=== PATIENT | female | born 1965 | race Hispanic/Latino ===

== ENCOUNTER 2018-02-28 15:15 | Inpatient (IN) | payer OTHER ==
[2018-02-28 16:10] LABS: Basophils % (Auto) 0.4 % (0.0-1.8); Eosinophils % (Auto) 0.6 % (0.0-4.3); Hematocrit 48.4 % (30.3-42.9); Hemoglobin 16.7 gm/dl (10.1-14.3); Lymphocytes # (Auto) 2.5 K/mm3 (1.2-5.4); Mean Corpuscular HGB Conc 35 % (30-34); Mean Corpuscular Hemoglobin 31 pg (28-32); Mean Corpuscular Volume 90 fl (79-97); Monocytes # (Auto) 0.5 K/mm3 (0.0-0.8); Monocytes % (Auto) 7.4 % (0.0-7.3); Platelet Count 286 K/mm3 (140-440); Red Blood Count 5.36 M/mm3 (3.65-5.03); Red Cell Distribution Width 12.4 % (13.2-15.2)
[2018-02-28 16:26] LABS: BUN/Creatinine Ratio 15; Blood Urea Nitrogen 9 mg/dL (7-17); Calcium 9.4 mg/dL (8.4-10.2); Hemolysis Index 5
--- NOTE | 2018-02-28 21:41 | XRay Report ---
FINAL REPORT PROCEDURE: XR CHEST ROUTINE 2V TECHNIQUE: PA and lateral chest radiographs were obtained. CPT 66671 HISTORY: chest pain and tightness COMPARISON: No prior studies are available for comparison. FINDINGS: Heart: Normal. Mediastinum/Vessels: Normal. Lungs/Pleural space: Normal. Bony thorax: No acute osseous abnormality. Other: IMPRESSION: Normal examination.
[2018-02-28 23:10] LABS: Bilirubin,Urine NEG (Negative); Blood,Urine SM (Negative); Color,Urine Yellow (Yellow); Mucus,Urine FEW /HPF; Urobilinogen,Urine < 2.0 mg/dL (<2.0)
[2018-02-28] MEDS ORDERED: TYLENOL PO ONE (23:11)
[2018-02-28] MEDS ORDERED: TYLENOL ONE (23:12)
[2018-03-01] MEDS ORDERED: NITRO-BID 2% TP ONE (03:02)
[2018-03-01] MEDS ORDERED: TORADOL IV ONE (03:02)
--- NOTE | 2018-03-01 03:09 | Emergency Department Report ---
HPI - General Chief Complaint: Chest Pain Time Seen by Provider: 03/01/18 02:51 - HPI HPI: Calin Dominguez The patient is a 52-year-old female presenting with a chief complaint of chest pain and dizziness. The patient states today at approximately noon she developed intermittent substernal chest tightness associated with shortness of breath, nausea and diaphoresis. Patient denies vomiting. Patient states she felt dizzy, had blurred vision, headache and experienced palpitations. Patient states she felt as though she was going to pass out prompting her to come to the emergency department. The patient states with her chest tightness she has had left upper extremity paresthesia . Patient states she's never had a cardiac catheterization Location: [See above] Duration: [See above] Quality: Tightness Severity: 12/14 Modifying factors: [see above] Context: [see above] Mode of transportation: [not driving] ED Past Medical Hx - Past Medical History Previous Medical History?: Yes Hx Hypertension: Yes - Surgical History Past Surgical History?: Yes Hx Cholecystectomy: Yes (2009) Additional Surgical History: mikayla aponte 2004 - Family History Family history: no significant - Social History Smoking Status: Former Smoker (none since 2002) Substance Use Type: None (denies illicit drug use), Alcohol (occasional) - Medications Home Medications: Home Medications Medication Instructions Recorded Confirmed Last Taken Type Eszopiclone [Lunesta] 3 mg PO QHS 02/28/18 02/28/18 Unknown History Norvasc 5 mg PO DAILY 02/28/18 02/28/18 Unknown History Tizanidine HCl [Zanaflex] 4 mg PO QHS 02/28/18 02/28/18 Unknown History cloNIDine [Catapres] 0.1 mg PO Q8HR PRN 02/28/18 02/28/18 Unknown History hydrALAZINE [Apresoline TAB] 100 mg PO TID 02/28/18 02/28/18 Unknown History ED Review of Systems ROS: Stated complaint: CHEST PAIN Other details as noted in HPI Constitutional: diaphoresis Eyes: denies: eye pain ENT: denies: throat pain Respiratory: shortness of breath Cardiovascular: chest pain, palpitations Endocrine: no symptoms reported Gastrointestinal: nausea. denies: vomiting Musculoskeletal: denies: back pain Neurological: headache, paresthesias Physical Exam - Physical Exam Vital Signs: Vital Signs 02/28/18 02/28/18 02/28/18 15:25 21:11 22:56 Temperature 98.5 F 98.8 F Pulse Rate 114 H 108 H 116 H Respiratory 16 18 18 Rate Blood Pressure 153/85 164/96 Blood Pressure 183/93 [Right] O2 Sat by Pulse 99 98 Oximetry 02/28/18 02/28/18 03/01/18 22:58 23:12 00:19 Temperature Pulse Rate 95 H Respiratory 18 14 Rate Blood Pressure Blood Pressure 181/91 157/89 [Right] O2 Sat by Pulse 98 Oximetry Physical Exam: GENERAL: The patient is well-developed well-nourished female lying on stretcher not appearing to be in acute distress. [] HEENT: Normocephalic. Atraumatic. Extraocular motions are intact. Patient has moist mucous membranes. NECK: Supple. Trachea midline CHEST/LUNGS: Clear to auscultation. There is no respiratory distress noted. HEART/CARDIOVASCULAR: Regular. There is no tachycardia. There is no gallop rub or murmur. ABDOMEN: Abdomen is soft, nontender. Patient has normal bowel sounds. There is no abdominal distention. SKIN: There is no rash. There is no edema. There is no diaphoresis. NEURO: The patient is awake, alert, and oriented. The patient is cooperative. The patient has no focal neurologic deficits. The patient has normal speech. Cranial nerves II through XII grossly intact, no drift MUSCULOSKELETAL: There is no evidence of acute injury. ED Course Vital Signs 02/28/18 02/28/18 02/28/18 15:25 21:11 22:56 Temperature 98.5 F 98.8 F Pulse Rate 114 H 108 H 116 H Respiratory 16 18 18 Rate Blood Pressure 153/85 164/96 Blood Pressure 183/93 [Right] O2 Sat by Pulse 99 98 Oximetry 02/28/18 02/28/18 03/01/18 22:58 23:12 00:19 Temperature Pulse Rate 95 H Respiratory 18 14 Rate Blood Pressure Blood Pressure 181/91 157/89 [Right] O2 Sat by Pulse 98 Oximetry ED Medical Decision Making - Lab Data Result diagrams: 02/28/18 15:36 02/28/18 15:36 Laboratory Tests 02/28/18 02/28/18 02/28/18 15:36 15:36 18:42 WBC 7.1 RBC 5.36 H Hgb 16.7 H Hct 48.4 H MCV 90 MCH 31 MCHC 35 H RDW 12.4 L Plt Count 286 Lymph % (Auto) 35.0 [place] % (Auto) 7.4 H Eos % (Auto) 0.6 Baso % (Auto) 0.4 Lymph # 2.5 [place] # 0.5 Eos # 0.0 Baso # 0.0 Seg Neutrophils % 56.6 Seg Neutrophils # 4.0 Sodium 139 Potassium 3.3 L Chloride 97.7 L Carbon Dioxide 20 L Anion Gap 25 BUN 9 Creatinine 0.6 L Estimated GFR > 60 BUN/Creatinine Ratio 15 Glucose 100 Calcium 9.4 Troponin T < 0.010 < 0.010 Urine Color Urine Turbidity Urine pH Ur Specific [place] Urine Protein Urine Glucose (UA) Urine Ketones Urine Blood Urine Nitrite Urine Bilirubin Urine Urobilinogen Ur Leukocyte Esterase Urine WBC (Auto) Urine RBC (Auto) U Epithel Cells (Auto) Urine Mucus 02/28/18 02/28/18 23:28 Unknown WBC RBC Hgb Hct MCV MCH MCHC RDW Plt Count Lymph % (Auto) [place] % (Auto) Eos % (Auto) Baso % (Auto) Lymph # [place] # Eos # Baso # Seg Neutrophils % Seg Neutrophils # Sodium Potassium Chloride Carbon Dioxide Anion Gap BUN Creatinine Estimated GFR BUN/Creatinine Ratio Glucose Calcium Troponin T < 0.010 Urine Color Yellow Urine Turbidity Slightly-cloudy Urine pH 5.0 Ur Specific [place] 1.017 Urine Protein 30 mg/dl Urine Glucose (UA) Neg Urine Ketones 80 Urine Blood Sm Urine Nitrite Neg Urine Bilirubin Neg Urine Urobilinogen < 2.0 Ur Leukocyte Esterase Lg Urine WBC (Auto) 117.0 H Urine RBC (Auto) 5.0 U Epithel Cells (Auto) 4.0 Urine Mucus Few - EKG Data -: EKG Interpreted by Me EKG shows normal: sinus rhythm Rate: normal - EKG Data When compared to previous EKG there are: previous EKG unavailable Interpretation: nonspecific ST-T wave tomasz (ST depressions in leads one to 3 aVF , V3, V4, V5, V6) - Radiology Data Radiology results: report reviewed (CT head, CT chest, chest x-ray), image reviewed (CT head, CT chest, chest x-ray) interpreted by me: Chest x-ray-no focal infiltrates, no pneumothorax [facility] [address] [place] [address] Cat Scan Report Signed Patient: NOLAN OWENS MR#: [id number] : Acct:[id number] Age/Sex: 52 / F ADM Date: 02/28/18 Loc: ED Attending Dr: Ordering Physician: SHAWNA GALLAGHER MD Date of Service: 03/01/18 Procedure(s): CT head/brain wo con Accession Number(s): [id number] cc: SHAWNA GALLAGHER MD FINAL REPORT EXAM: CT HEAD/BRAIN WO CON HISTORY: headache, near syncope TECHNIQUE: Routine axial imaging was obtained of the brain without IV contrast. FINDINGS: The ventricular system is appropriate in size and is symmetric. There is no evidence of acute stroke or hemorrhage. The sinuses reveal several polyps/ mucous retention cysts in the right maxillary sinus. The mastoid air cells are well pneumatized. The calvarium appears intact. IMPRESSION: No acute intracranial process. Several polyps/mucous retention cysts in the right maxillary sinus. Transcribed By: RB Dictated By: GONSALO LARA MD Electronically Authenticated By: GONSALO LARA MD Signed Date/Time: 03/01/18336 DD/ 6 TD/TT: 03/01/18336 [facility] [address] [place] [address] Cat Scan Report Signed Patient: NOLAN OWENS MR#: [id number] : Acct:[id number] Age/Sex: 52 / F ADM Date: 02/28/18 Loc: ED Attending Dr: Ordering Physician: SHAWNA GALLAGHER MD Date of Service: 03/01/18 Procedure(s): CT angio chest Accession Number(s): [id number] cc: SHAWNA GALLAGHER MD FINAL REPORT EXAM: CT ANGIO CHEST HISTORY: chest pain, near syncope TECHNIQUE: A CT angiogram was performed following the intravenous injection of iodinated contrast. MIP sagittal and coronal reconstructions were reviewed. FINDINGS: There is no evidence of pulmonary embolus or aortic dissection. The thoracic aorta is normal in caliber. Heart size is normal. Pericardial fluid is not seen. There is no evidence of adenopathy. The lungs reveal minimal atelectatic changes versus scarring in the left lower lobe. There are no infiltrates or effusions. The lungs are not congested. In the upper abdomen there is a small hiatal hernia. The adrenal glands appear normal. The gallbladder has been removed. The skeletal structures reveal mild disc degeneration in the dorsal spine. At the thoracic inlet there is a 6 millimeter low-density focus in the left thyroid lobe. IMPRESSION: No evidence of pulmonary embolus, aortic dissection, or vascular congestion. Minimal atelectatic changes versus scarring in the left lung base. Small hiatal hernia. Cholecystectomy. 6 millimeter low- density focus in left thyroid lobe. Further evaluation is recommended with outpatient thyroid sonography. Transcribed By: RB Dictated By: GONSALO LARA MD Electronically Authenticated By: GONSALO LARA MD Signed Date/Time: 417 DD/ 7 TD/TT: 03/01/18417 [facility] [address] [place] [address] XRay Report Signed Patient: NOLAN OWENS MR#: [id number] : 1964 Acct:[id number] Age/Sex: 52 / F ADM Date: 02/28/18 Loc: ED Attending Dr: Ordering Physician: ANDRESSA ARRIAGA MD Date of Service: 02/28/18 Procedure(s): XR chest routine 2V Accession Number(s): [id number] cc: ANRDESSA ARRIAGA MD Fluoro Time In Minutes: FINAL REPORT PROCEDURE: XR CHEST ROUTINE 2V TECHNIQUE: PA and lateral chest radiographs were obtained. CPT 34705 HISTORY: chest pain and tightness COMPARISON: No prior studies are available for comparison. FINDINGS: Heart: Normal. Mediastinum/Vessels: Normal. Lungs/Pleural space: Normal. Bony thorax: No acute osseous abnormality. Other: IMPRESSION: Normal examination. Transcribed By: JONE Dictated By: CHINO COBIAN MD Electronically Authenticated By: CHINO COBIAN MD Signed Date/Time: 02/28/182139 DD/ 39 TD/TT: 02/28/182139 - Differential Diagnosis ACS, PE, ICH, pericarditis, GERD Critical care attestation.: If time is entered above; I have spent that time in minutes in the direct care of this critically ill patient, excluding procedure time. ED Disposition Clinical Impression: Chest pain, ST segment depression Disposition: DC-09 OP ADMIT IP TO THIS HOSP Is pt being admited?: Yes Does the pt Need Aspirin: Yes Condition: Fair Instructions: Chest Pain (ED) Referrals: MARCIA CHATMAN MD [Primary Care Provider] - 3-5 Days Time of Disposition: 04:48 (hospitalist paged (Dr Suarez))
[2018-03-01] MEDS ORDERED: ASPIRIN PO ONE (03:21)
[2018-03-01] MEDS ORDERED: ATIVAN IV ONE (03:32)
--- NOTE | 2018-03-01 03:38 | Cat Scan Report ---
FINAL REPORT EXAM: CT HEAD/BRAIN WO CON HISTORY: headache, near syncope TECHNIQUE: Routine axial imaging was obtained of the brain without IV contrast. FINDINGS: The ventricular system is appropriate in size and is symmetric. There is no evidence of acute stroke or hemorrhage. The sinuses reveal several polyps/mucous retention cysts in the right maxillary sinus. The mastoid air cells are well pneumatized. The calvarium appears intact. IMPRESSION: No acute intracranial process. Several polyps/mucous retention cysts in the right maxillary sinus.
[2018-03-01] MEDS ORDERED: ZOFRAN ONE (03:51)
[2018-03-01] MEDS ORDERED: ZOFRAN IV ONE (03:58)
--- NOTE | 2018-03-01 04:19 | Cat Scan Report ---
FINAL REPORT EXAM: CT ANGIO CHEST HISTORY: chest pain, near syncope TECHNIQUE: A CT angiogram was performed following the intravenous injection of iodinated contrast. MIP sagittal and coronal reconstructions were reviewed. FINDINGS: There is no evidence of pulmonary embolus or aortic dissection. The thoracic aorta is normal in caliber. Heart size is normal. Pericardial fluid is not seen. There is no evidence of adenopathy. The lungs reveal minimal atelectatic changes versus scarring in the left lower lobe. There are no infiltrates or effusions. The lungs are not congested. In the upper abdomen there is a small hiatal hernia. The adrenal glands appear normal. The gallbladder has been removed. The skeletal structures reveal mild disc degeneration in the dorsal spine. At the thoracic inlet there is a 6 millimeter low-density focus in the left thyroid lobe. IMPRESSION: No evidence of pulmonary embolus, aortic dissection, or vascular congestion. Minimal atelectatic changes versus scarring in the left lung base. Small hiatal hernia. Cholecystectomy. 6 millimeter low-density focus in left thyroid lobe. Further evaluation is recommended with outpatient thyroid sonography.
[2018-03-01] MEDS ORDERED: PROTONIX PO SCH (04:30)
[2018-03-01] MEDS: PROTONIX PO SCH ×2 (04:39→10:46)
[2018-03-01] MEDS ORDERED: CATAPRES PO PRN (10:18)
--- NOTE | 2018-03-01 10:18 | History and Physical Report ---
History of Present Illness Chief complaint: chest pain History of present illness: 52F with pmh of uncontrolled htn she pw CP x 10 days pain is dull, substernal, 6/10, no radiation, denies decreased ET -exacerbated by having high BP -complaining of frontal headaches also -denies nausea or SOB -states that she got a cold last week and thinks it made her feel very ill -her BP has been running high and she has had to take PRN clonidine -she does not like taking hydralazine as she has to take it TID and would prefer daily or BID meds Allergies SUDHIR-I; angioedema, and sulfa drugs, hives with bactrim PMH; htn uncontrolled, has not seen her doctor in some time because her spouse had an DC a few months ago PMH; cholecystecomy, umbilical hernia repair, tummy tuck, liposuction Fam H; dad had DC and CAD prematurely Social Hx; works as an RN, 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 Medications and Allergies Allergies Allergy/AdvReac Type Severity Reaction Status Date / Time lisinopril Allergy Angioedema Verified 02/28/18 15:25 Sulfa (Sulfonamide Allergy Swelling Verified 02/28/18 15:25 Antibiotics) Home Medications Medication Instructions Recorded Confirmed Last Taken Type Eszopiclone [Lunesta] 3 mg PO QHS 02/28/18 02/28/18 Unknown History Norvasc 5 mg PO DAILY 02/28/18 02/28/18 Unknown History Tizanidine HCl [Zanaflex] 4 mg PO QHS 02/28/18 02/28/18 Unknown History cloNIDine [Catapres] 0.1 mg PO Q8HR PRN 02/28/18 02/28/18 Unknown History hydrALAZINE [Apresoline TAB] 100 mg PO TID 02/28/18 02/28/18 Unknown History Active Meds: Active Medications Pantoprazole Sodium (Protonix) 20 mg PO QDAY JAMESON Last Admin: 03/01/18 04:39 Dose: 20 mg Review of Systems All systems: negative (10 pt ros is otherwise neg) Constitutional: anorexia Cardiovascular: chest pain Respiratory: no cough Gastrointestinal: no nausea Musculoskeletal: no neck stiffness Integumentary: no rash Neurological: no head injury Psychiatric: no anxiety Endocrine: no cold intolerance Hematologic/Lymphatic: no easy bruising Allergic/Immunologic: no urticaria Exam - Constitutional Vitals: Temp Pulse Resp BP Pulse Ox 98.8 F 85 14 131/85 98 02/28/18 21:11 03/01/18 04:13 03/01/18 00:19 03/01/18 04:13 03/01/18 00:19 General appearance: Present: no acute distress, well-nourished - EENT Eyes: Present: PERRL ENT: hearing intact, clear oral mucosa - Neck Neck: Present: supple, normal ROM - Respiratory Respiratory effort: normal Respiratory: bilateral: CTA - Cardiovascular Heart Sounds: Present: S1 & S2. Absent: rub, click - Extremities Extremities: pulses symmetrical, No edema Peripheral Pulses: within normal limits - Abdominal General gastrointestinal: Present: soft, non-tender, non-distended, normal bowel sounds Female genitourinary: Present: normal - Integumentary Integumentary: Present: clear, warm, dry - Musculoskeletal Musculoskeletal: gait normal, strength equal bilaterally - Psychiatric Psychiatric: appropriate mood/affect, intact judgment & insight - Neurologic Neurologic: CNII-XII intact, moves all extremities Results - Labs CBC & Chem 7: 02/28/18 15:36 02/28/18 15:36 Labs: Laboratory Last Values WBC 7.1 K/mm3 (4.5-11.0) 02/28/18 15:36 RBC 5.36 M/mm3 (3.65-5.03) H 02/28/18 15:36 Hgb 16.7 gm/dl (10.1-14.3) H 02/28/18 15:36 Hct 48.4 % (30.3-42.9) H 02/28/18 15:36 MCV 90 fl (79-97) 02/28/18 15:36 MCH 31 pg (28-32) 02/28/18 15:36 MCHC 35 % (30-34) H 02/28/18 15:36 RDW 12.4 % (13.2-15.2) L 02/28/18 15:36 Plt Count 286 K/mm3 (140-440) 02/28/18 15:36 Lymph % (Auto) 35.0 % (13.4-35.0) 02/28/18 15:36 [place] % (Auto) 7.4 % (0.0-7.3) H 02/28/18 15:36 Eos % (Auto) 0.6 % (0.0-4.3) 02/28/18 15:36 Baso % (Auto) 0.4 % (0.0-1.8) 02/28/18 15:36 Lymph # 2.5 K/mm3 (1.2-5.4) 02/28/18 15:36 [place] # 0.5 K/mm3 (0.0-0.8) 02/28/18 15:36 Eos # 0.0 K/mm3 (0.0-0.4) 02/28/18 15:36 Baso # 0.0 K/mm3 (0.0-0.1) 02/28/18 15:36 Seg Neutrophils % 56.6 % (40.0-70.0) 02/28/18 15:36 Seg Neutrophils # 4.0 K/mm3 (1.8-7.7) 02/28/18 15:36 Sodium 139 mmol/L (137-145) 02/28/18 15:36 Potassium 3.3 mmol/L (3.6-5.0) L 02/28/18 15:36 Chloride 97.7 mmol/L (98-107) L 02/28/18 15:36 Carbon Dioxide 20 mmol/L (22-30) L 02/28/18 15:36 Anion Gap 25 mmol/L 02/28/18 15:36 BUN 9 mg/dL (7-17) 02/28/18 15:36 Creatinine 0.6 mg/dL (0.7-1.2) L 02/28/18 15:36 Estimated GFR > 60 ml/min 02/28/18 15:36 BUN/Creatinine Ratio 15 % 02/28/18 15:36 Glucose 100 mg/dL (65-100) 02/28/18 15:36 Calcium 9.4 mg/dL (8.4-10.2) 02/28/18 15:36 Troponin T < 0.010 ng/mL (0.00-0.029) 02/28/18 23:28 Urine Color Yellow (Yellow) 02/28/18 Unknown Urine Turbidity Slightly-cloudy (Clear) 02/28/18 Unknown Urine pH 5.0 (5.0-7.0) 02/28/18 Unknown Ur Specific [place] 1.017 (1.003-1.030) 02/28/18 Unknown Urine Protein 30 mg/dl mg/dL (Negative) 02/28/18 Unknown Urine Glucose (UA) Neg mg/dL (Negative) 02/28/18 Unknown Urine Ketones 80 mg/dL (Negative) 02/28/18 Unknown Urine Blood Sm (Negative) 02/28/18 Unknown Urine Nitrite Neg (Negative) 02/28/18 Unknown Urine Bilirubin Neg (Negative) 02/28/18 Unknown Urine Urobilinogen < 2.0 mg/dL (<2.0) 02/28/18 Unknown Ur Leukocyte Esterase Lg (Negative) 02/28/18 Unknown Urine WBC (Auto) 117.0 /HPF (0.0-6.0) H 02/28/18 Unknown Urine RBC (Auto) 5.0 /HPF (0.0-6.0) 02/28/18 Unknown U Epithel Cells (Auto) 4.0 /HPF (0-13.0) 02/28/18 Unknown Urine Mucus Few /HPF 02/28/18 Unknown Assessment and Plan Assessment and plan: 52f with cp and uncontrlled htn chest pain, obtain stress test likely due to htn urgency HTN with urgency optimize meds -metoprolol was dc -start on labetalol -increase norvasc from 5 to 10 -dc hydralazine, she would prefer to take qd or BID meds -dc clonidine prn, as it is likely causing rebound htn UTI obtain U cx, start rocephin Hypokalemia -replete
[2018-03-01] MEDS ORDERED: SODIUM CHLORIDE FLUSH SYRINGE 10 ML IV PRN (10:20)
[2018-03-01] MEDS ORDERED: PERCOCET 5/325 PO PRN (10:20)
[2018-03-01] MEDS ORDERED: ZOFRAN IV PRN (10:20)
[2018-03-01] MEDS ORDERED: ZANAFLEX PO PRN (11:48)
[2018-03-01] MEDS: ROCEPHIN/NS 1 GM/50 ML 1 GM/50 ML BAG IV SCH (12:00)
[2018-03-01] MEDS ORDERED: APRESOLINE ONE (15:18)
[2018-03-01] MEDS: TYLENOL PO PRN (19:00)
[2018-03-01] MEDS ORDERED: NON-FORMULARY (Eszopiclone [Lunesta] 3 MG) PO SCH (22:00)
[2018-03-01] MEDS ORDERED: NON-FORMULARY (Tizanidine Hcl [Zanaflex] 4 MG) PO SCH (22:00)
[2018-03-01] MEDS ORDERED: ZANAFLEX PO SCH (22:00)
[2018-03-01] MEDS: APRESOLINE PO SCH (23:04)
[2018-03-01] MEDS: SODIUM CHLORIDE FLUSH SYRINGE 10 ML IV SCH (23:06)
[2018-03-02] MEDS: TYLENOL PO PRN (08:54)
[2018-03-02] MEDS ORDERED: LOVENOX SUB-Q SCH (10:00)
[2018-03-02] MEDS ORDERED: NORVASC PO SCH ×2 (10:00→12:00)
[2018-03-02] MEDS ORDERED: NORVASC 5 MG PO SCH (10:00)
[2018-03-02] MEDS ORDERED: LEXISCAN IV ONE (10:05)
[2018-03-02] MEDS ORDERED: ECOTRIN PO ONE ×2 (10:32→11:30)
[2018-03-02] MEDS ORDERED: ZOFRAN ONE (10:57)
[2018-03-02] MEDS ORDERED: NACL 0.9% 500 ML 500 ML IV SCH ×2 (11:00)
[2018-03-02 11:14] LABS: INR 0.93 (0.87-1.13)
[2018-03-02] MEDS ORDERED: VALIUM PO NR (11:25)
[2018-03-02] MEDS ORDERED: K-DUR PO NR (11:30)
[2018-03-02] MEDS ORDERED: VALIUM ONE (11:32)
[2018-03-02] MEDS: SODIUM CHLORIDE FLUSH SYRINGE 10 ML IV SCH (11:44)
[2018-03-02] MEDS: PROTONIX PO SCH (11:44)
[2018-03-02] MEDS: ROCEPHIN/NS 1 GM/50 ML 1 GM/50 ML BAG IV SCH (11:44)
[2018-03-02] MEDS ORDERED: NORMODYNE PO SCH (12:00)
[2018-03-02] MEDS ORDERED: HEPARIN/NS 5000 UNIT/500ML(CATH LAB) 1,000 ML IR ONE (12:08)
[2018-03-02] MEDS ORDERED: XYLOCAINE 2% INFILTRATI ONE (12:09)
[2018-03-02] MEDS ORDERED: NITROGLYCERIN SYRINGE 3 ML ONE (12:09)
[2018-03-02] MEDS ORDERED: HEPARIN 10,000 UNITS/10 ML ONE (12:09)
[2018-03-02] MEDS ORDERED: CALAN ONE (12:09)
[2018-03-02] MEDS ORDERED: SUBLIMAZE ONE (12:09)
[2018-03-02] MEDS: VERSED ONE ×2 (12:28→12:29)
--- NOTE | 2018-03-02 12:55 | Consultation ---
History of Present Illness Consult date: 03/02/18 Consult reason: chest pain History of present illness: 52 year old female admitted with atypical chest pain. Troponin negative. ECG showing sinus tachycardia with diffuse ST segment depression. Patient walked 1 min on a Benny protocol and started experiencing shortness of breath and lightheadedness. Procedure therefore cancelled and patient underwent coronary angiography revealing mild non-obstructive ostial LAD disease, hyperdynamic LV function and normal LVEDP Past History Past Medical History: hypertension Past Surgical History: Other (tummy tuck) Social history: no significant social history Family history: no significant family history Medications and Allergies Allergies Allergy/AdvReac Type Severity Reaction Status Date / Time lisinopril Allergy Angioedema Verified 02/28/18 15:25 Sulfa (Sulfonamide Allergy Swelling Verified 02/28/18 15:25 Antibiotics) Home Medications Medication Instructions Recorded Confirmed Last Taken Type Eszopiclone [Lunesta] 3 mg PO QHS 02/28/18 02/28/18 Unknown History Norvasc 5 mg PO DAILY 02/28/18 02/28/18 Unknown History Tizanidine HCl [Zanaflex] 4 mg PO QHS 02/28/18 02/28/18 Unknown History cloNIDine [Catapres] 0.1 mg PO Q8HR PRN 02/28/18 02/28/18 Unknown History hydrALAZINE [Apresoline TAB] 100 mg PO TID 02/28/18 02/28/18 Unknown History Active Meds: Active Medications Acetaminophen (Tylenol) 650 mg PO Q4H PRN PRN Reason: Pain MILD(1-3)/Fever >100.5/TIDWELL Last Admin: 03/02/18 08:54 Dose: 650 mg Amlodipine Besylate (Norvasc) 10 mg PO QDAY JAMESON Enoxaparin Sodium (Lovenox) 40 mg SUB-Q QDAY [facility] Last Admin: 03/02/18 11:43 Dose: Not Given Ceftriaxone Sodium (Rocephin/Ns 1 Gm/50 Ml) 1 gm in 50 mls @ 100 mls/hr IV Q24HR [facility]; Protocol Last Admin: 03/02/18 11:44 Dose: Not Given Sodium Chloride (Nacl 0.9% 500 Ml) 500 mls @ 50 mls/hr IV DIRECT JAMESON Stop: 03/02/18 20:59 Last Admin: 03/02/18 11:39 Dose: 50 mls/hr Sodium Chloride (Nacl 0.9% 500 Ml) 500 mls @ 50 mls/hr IV DIRECT [facility] Stop: 03/02/18 20:59 Labetalol HCl (Normodyne) 200 mg PO BID [facility] Miscellaneous Medication (Eszopiclone [Lunesta]) 3 mg PO QHS [facility] Ondansetron HCl (Zofran) 4 mg IV Q8H PRN PRN Reason: Nausea And Vomiting Last Admin: 03/02/18 10:57 Dose: 4 mg Oxycodone/Acetaminophen (Percocet 5/325) 1 tab PO Q6H PRN PRN Reason: Pain, Moderate (4-6) Pantoprazole Sodium (Protonix) 20 mg PO QDAY [facility] Last Admin: 03/02/18 11:44 Dose: Not Given Potassium Chloride (K-Dur) 40 meq PO ONCE NR Stop: 03/02/18 13:00 Last Admin: 03/02/18 11:10 Dose: 40 meq Sodium Chloride (Sodium Chloride Flush Syringe 10 Ml) 10 ml IV BID [facility] Last Admin: 03/02/18 11:44 Dose: Not Given Sodium Chloride (Sodium Chloride Flush Syringe 10 Ml) 10 ml IV PRN PRN PRN Reason: LINE FLUSH Tizanidine HCl (Zanaflex) 4 mg PO QHS [facility] Last Admin: 03/01/18 23:06 Dose: 4 mg Review of Systems All systems: negative Physical Examination Vital Signs Temp Pulse Resp BP Pulse Ox 98.5 F 114 H 16 153/85 99 02/28/18 15:25 02/28/18 15:25 02/28/18 15:25 02/28/18 15:25 02/28/18 15:25 General appearance: no acute distress HEENT: Positive: PERRL Neck: Positive: neck supple Cardiac: Positive: Tachycardia Lungs: Positive: Normal Exam Neuro: Positive: Grossly Intact Abdomen: Positive: Soft Extremities: Absent: edema Results 02/28/18 15:36 02/28/18 15:36 Coagulation 03/02/18 Range/Units 10:45 PT 13.0 (12.2-14.9) Sec. INR 0.93 (0.87-1.13) - EKG Interpretation EKG shows: tachycardia EKG interpretations - Telemetry EKG Rhythm: Sinus Tachycardia Assessment and Plan Atypical chest pain Negative troponin x [address] segment depression on ECG Mild non-obstructive LAD disease on cardiac cath Normal LVEF on cath and echo Systemic Hypertension Anxiety disorder Recommendations: No further cardiac work-up is needed Resume antihypertensive meds (patient on clonidine, hydralazine and amlodipine at home) Start Paxil for anxiety/panic disorder
[2018-03-02] MEDS: APRESOLINE PO SCH (13:26)
--- NOTE | 2018-03-02 15:03 | Cardiac Catherization Report ---
LEFT HEART CATHETERIZATION ORDERING PHYSICIAN: Kiara Mckeon MD INDICATION: Chest pain, shortness of breath, unable to complete Benny protocol treadmill stress test. PROCEDURES PERFORMED: 1. Selective left and right coronary angiography. 2. Left ventriculography. DESCRIPTION OF PROCEDURE: After obtaining the consent, the patient was draped using sterile technique. A 2% lidocaine was injected into the right wrist. A 6-Bhutanese vascular sheath was inserted into the right radial artery, 6-Bhutanese Rowdy catheter was used to selectively engage left coronary artery, 6-Bhutanese JR4 catheter was used to selectively engage the right coronary artery. A 6-Bhutanese JR4 catheter was used to hand inject left ventriculogram. No complications occurred during the procedure. Hemostasis was achieved at the end of the procedure using manual pressure. ESTIMATED BLOOD LOSS: Minimal. SPECIMEN REMOVED: None. SEDATION ADMINISTERED: 2 mg of IV Versed and 50 mcg of IV fentanyl. Physician and the patient sedation [id number] start time 12:29 p.m. Physician and the patient sedations [id number] end time is 12:45 p.m. Total sedation time is 16 minutes. FINDINGS: Aortic pressure 118/90, LV systolic pressure 180 mmHg, LVEDP 8 mmHg. No significant gradient noted across the left ventricular outflow tract. CARDIAC STRUCTURES: Hyperdynamic left ventricle with an ejection fraction estimated at greater than 70%. CORONARY ANATOMY: 1. This is a right dominant circulation. Left main is angiographically normal. LAD has evidence of a focal ostial 20% stenosis. 2. Left circumflex artery is angiographically normal. 3. The right coronary artery is a dominant vessel that is angiographically normal. IMPRESSION: 1. Mild nonobstructive ostial LAD disease, otherwise the remaining coronary segments are normal. 2. Hyperdynamic left ventricle with an ejection fraction estimated at greater than 70%. 3. Normal LVEDP. RECOMMENDATIONS: 1. Risk factor modification. 2. Consider therapy for generalized anxiety, panic disorder. JOB# [id number] WALTER/NADIA
[2018-03-02 16:52] VITALS: BP 147/86
--- NOTE | 2018-03-02 17:01 | Progress Note ---
Assessment and Plan Assessment and plan: 52F with pmh of uncontrolled htn who pw CP chest pain, abnormal stress test, sent to [facility] which showed 20% LAD lesion treat with medical management ECHO EF 60-65%, trace TR, MR, trivial pericardial effusion, abnormal Diastolic dysfunction HTN with urgency optimize meds -metoprolol was dc -start on labetalol -increase norvasc from 5 to 10 -dc hydralazine, she would prefer to take qd or BID meds -dc clonidine prn, as it is likely causing rebound htn UTI obtain U cx, start rocephin Hypokalemia -replete History Interval history: Patient was seen and examined. Follow-up on current diagnosis of cp. Overnight uneventful. Patient denies any shortness breath, nausea/vomiting or severe headaches. Imaging, nursing note, chart, labs and old chart reviewed. Discussed with patient. Hospitalist Physical - Physical exam Narrative exam: GEN: WDWN, NAD, Awake, Alert, Orientated x 3 HEENT: NCAT, EOMI, PERRL, OP Clear NECK: supple, no adenopathy, no thyromegaly, no JVD CVS/HEART: RRR, normal S1S2, pulses present bilaterally CHEST/LUNGS: CTA B, Symmetrical chest expansion, good air entry bilaterally GI/Abdomen: soft, NTND, good bowel sounds, no guarding or rebound /Bladder: no suprapubic tenderness, no CVA or paraspinal tenderness EXT/Skin: no c/c/e, no obvious rash MSK: FROM x 4 Neuro: CN 2-12 grossly intact, no new focal deficits Psych: calm - Constitutional Vitals: Temp Pulse Resp BP Pulse Ox 97.7 F 95 H 20 147/86 98 03/02/18 13:27 03/02/18 16:42 03/02/18 16:42 03/02/18 16:42 03/02/18 16:42 General appearance: Present: no acute distress Results - Labs CBC & Chem 7: 02/28/18 15:36 02/28/18 15:36 Labs: Laboratory Last Values WBC 7.1 K/mm3 (4.5-11.0) 02/28/18 15:36 RBC 5.36 M/mm3 (3.65-5.03) H 02/28/18 15:36 Hgb 16.7 gm/dl (10.1-14.3) H 02/28/18 15:36 Hct 48.4 % (30.3-42.9) H 02/28/18 15:36 MCV 90 fl (79-97) 02/28/18 15:36 MCH 31 pg (28-32) 02/28/18 15:36 MCHC 35 % (30-34) H 02/28/18 15:36 RDW 12.4 % (13.2-15.2) L 02/28/18 15:36 Plt Count 286 K/mm3 (140-440) 02/28/18 15:36 Lymph % (Auto) 35.0 % (13.4-35.0) 02/28/18 15:36 Worth % (Auto) 7.4 % (0.0-7.3) H 02/28/18 15:36 Eos % (Auto) 0.6 % (0.0-4.3) 02/28/18 15:36 Baso % (Auto) 0.4 % (0.0-1.8) 02/28/18 15:36 Lymph # 2.5 K/mm3 (1.2-5.4) 02/28/18 15:36 Worth # 0.5 K/mm3 (0.0-0.8) 02/28/18 15:36 Eos # 0.0 K/mm3 (0.0-0.4) 02/28/18 15:36 Baso # 0.0 K/mm3 (0.0-0.1) 02/28/18 15:36 Seg Neutrophils % 56.6 % (40.0-70.0) 02/28/18 15:36 Seg Neutrophils # 4.0 K/mm3 (1.8-7.7) 02/28/18 15:36 PT 13.0 Sec. (12.2-14.9) 03/02/18 10:45 INR 0.93 (0.87-1.13) 03/02/18 10:45 Sodium 139 mmol/L (137-145) 02/28/18 15:36 Potassium 3.3 mmol/L (3.6-5.0) L 02/28/18 15:36 Chloride 97.7 mmol/L (98-107) L 02/28/18 15:36 Carbon Dioxide 20 mmol/L (22-30) L 02/28/18 15:36 Anion Gap 25 mmol/L 02/28/18 15:36 BUN 9 mg/dL (7-17) 02/28/18 15:36 Creatinine 0.6 mg/dL (0.7-1.2) L 02/28/18 15:36 Estimated GFR > 60 ml/min 02/28/18 15:36 BUN/Creatinine Ratio 15 % 02/28/18 15:36 Glucose 100 mg/dL (65-100) 02/28/18 15:36 Calcium 9.4 mg/dL (8.4-10.2) 02/28/18 15:36 Troponin T < 0.010 ng/mL (0.00-0.029) 02/28/18 23:28 TSH 3.670 mlU/mL (0.270-4.200) 03/01/18 10:31 Thyroxine (T4) 9.7 ug/dL (4.0-12.0) 03/01/18 10:31 Urine Color Yellow (Yellow) 02/28/18 Unknown Urine Turbidity Slightly-cloudy (Clear) 02/28/18 Unknown Urine pH 5.0 (5.0-7.0) 02/28/18 Unknown Ur Specific [place] 1.017 (1.003-1.030) 02/28/18 Unknown Urine Protein 30 mg/dl mg/dL (Negative) 02/28/18 Unknown Urine Glucose (UA) Neg mg/dL (Negative) 02/28/18 Unknown Urine Ketones 80 mg/dL (Negative) 02/28/18 Unknown Urine Blood Sm (Negative) 02/28/18 Unknown Urine Nitrite Neg (Negative) 02/28/18 Unknown Urine Bilirubin Neg (Negative) 02/28/18 Unknown Urine Urobilinogen < 2.0 mg/dL (<2.0) 02/28/18 Unknown Ur Leukocyte Esterase Lg (Negative) 02/28/18 Unknown Urine WBC (Auto) 117.0 /HPF (0.0-6.0) H 02/28/18 Unknown Urine RBC (Auto) 5.0 /HPF (0.0-6.0) 02/28/18 Unknown U Epithel Cells (Auto) 4.0 /HPF (0-13.0) 02/28/18 Unknown Urine Mucus Few /HPF 02/28/18 Unknown
--- NOTE | 2018-03-02 18:35 | Discharge Summary ---
Providers - Providers Date of Admission: 03/02/18 15:02 Date of discharge: 03/02/18 Attending physician: JADEN OCAMPO 03/02/18 12:57 Consult to Cardiac Rehabilitation [CONS] Routine Reason For Exam: Cardiac Rehab Evaluation Primary care physician: MARCIA CHATMAN Hospitalization Condition: Stable Hospital course: 52F with pmh of uncontrolled htn who pw CP Chest pain, most likely Anxiety disorder, Dr. Mckeon suggest starting Paxil. abnormal stress test, sent to [facility] which showed 20% LAD lesion treat with medical management ECHO EF 60-65%, trace TR, MR, trivial pericardial effusion, abnormal Diastolic dysfunction HTN with urgency optimize meds -metoprolol was dc -start on labetalol -increase norvasc from 5 to 10 -dc hydralazine, she would prefer to take qd or BID meds -dc clonidine prn, as it is likely causing rebound htn UTI obtain U cx, start rocephin Hypokalemia -replete Disposition: DC-01 TO HOME OR SELFCARE Time spent for discharge: 34 minutes Core Measure Documentation - Palliative Care Palliative Care/ Comfort Measures: Not Applicable - Core Measures Any of the following diagnoses?: none - VTE Discharge Requirements Deep Vein Thrombosis/Pulmonary Embolism Present on Admission: No Has pt received <5 days of overlap therapy or INR<2.0: No Anticoagulant overlap therapy prescribed at discharge: No Contraindication No Overlap Therapy order at DC: Not Indicated Exam - Physical Exam Narrative exam: GEN: WDWN, NAD, Awake, Alert, Orientated x 3 HEENT: NCAT, EOMI, PERRL, OP Clear NECK: supple, no adenopathy, no thyromegaly, no JVD CVS/HEART: RRR, normal S1S2, pulses present bilaterally CHEST/LUNGS: CTA B, Symmetrical chest expansion, good air entry bilaterally GI/Abdomen: soft, NTND, good bowel sounds, no guarding or rebound /Bladder: no suprapubic tenderness, no CVA or paraspinal tenderness EXT/Skin: no c/c/e, no obvious rash MSK: FROM x 4 Neuro: CN 2-12 grossly intact, no new focal deficits Psych: calm - Constitutional Vitals: Temp Pulse Resp BP Pulse Ox 97.7 F 95 H 20 147/86 98 03/02/18 13:27 03/02/18 16:42 03/02/18 16:42 03/02/18 16:42 03/02/18 16:42 Plan Activity: other (no strenous activity) Diet: low salt Additional Instructions: Check fasting lipid panel with PCP Follow up with: MARCIA CHATMAN MD [Primary Care Provider] - 3-5 Days DAVID MCKEON MD [Staff Physician] - 7 Days Prescriptions: amLODIPine [Norvasc] 10 mg PO QDAY #30 tablet Aspirin [Aspir-Low] 81 mg PO DAILY #30 tablet. cloNIDine [Catapres] 0.1 mg PO Q8HR PRN #90 tablet PRN Reason: Hypertension hydrALAZINE [Apresoline TAB] 100 mg PO TID #90 tab PARoxetine [Paxil] 10 mg PO QDAY #30 tablet
[2018-03-03] MEDS ORDERED: PAXIL PO SCH (10:00)
== END 2018-03-02 19:30 | disposition home or self-care (01) | DRG 287 ==
LOC: ED 15:15 → 4A 03-01 10:20 → OBSVTOIN 03-02 15:02
PROVIDERS: ADMIT Internal Medicine; ATTEND Internal Medicine
PROC: 4A023N7 Measurement of Cardiac Sampling and Pressure, Left Heart, Percutaneous Approach (ICD-10-PCS; principal; 2018-03-02)
PROC: B2111ZZ Fluoroscopy of Multiple Coronary Arteries using Low Osmolar Contrast (ICD-10-PCS; 2018-03-02)
PROC: B2151ZZ Fluoroscopy of Left Heart using Low Osmolar Contrast (ICD-10-PCS; 2018-03-02)
DX: I16.0 Hypertensive urgency (principal); N39.0 Urinary tract infection, site not specified; E87.6 Hypokalemia; I10 Essential (primary) hypertension; F41.0 Panic disorder [episodic paroxysmal anxiety]; Z88.2 Allergy status to sulfonamides; Z79.899 Other long term (current) drug therapy; Z90.49 Acquired absence of other specified parts of digestive tract; Z82.49 Family history of ischemic heart disease and other diseases of the circulatory system; Z87.891 Personal history of nicotine dependence; Z72.89 Other problems related to lifestyle
CPT/HCPCS: 36415; 70450; 71046; 71275; 80048; 81001; 84436; 84443; 84484; 85025; 85610; 87086; 93005; 93010; 93306; 93458; 96374; 96375; C1887; C1894; G0378; J0696; J1644; J1885; J2060; J2250; J2405; J2785; J3010; J7040; Q9967